=== PATIENT | female | born 1975 | race Caucasian/White ===

== ENCOUNTER 2017-09-08 17:33 | Emergency (ER) | payer SELFPAY ==
[~2017-09-08] VITALS: Ht 177.8 cm; Wt 65.8 kg
[2017-09-08] MEDS ORDERED: LEVSOD125 PO (17:41)
[2017-09-08] MEDS ORDERED: Inderal 20 mg T20 MG PO (17:42)
[2017-09-08 18:20] LABS: Calcium, Ionized (POC) 1.06 mmol/L (1.10-1.46); Chloride (POC) 99 mmol/L (98-108); Creatinine (POC) 1.2 mg/dL (0.6-1.0); Glucose (ISTAT POC) 109 mg/dL (70-99); Hemoglobin (POC) 12.2 g/dL (12.0-16.0); Potassium (POC) 3.4 mmol/L (3.5-5.5); Sodium (POC) 138 mmol/L (135-148); Total CO2 (POC) 26 mmol/L (21-32)
== END 2017-09-08 18:43 | disposition home or self-care (01) ==
LOC: ER 17:33
PROVIDERS: Emergency Medicine
DX: F41.9 Anxiety disorder, unspecified (principal); E87.6 Hypokalemia; E03.9 Hypothyroidism, unspecified; Z79.899 Other long term (current) drug therapy
CPT/HCPCS: 80047; 85014; 93005; 93010; 99283-25